=== PATIENT | male | born 1990 | race Caucasian/White ===

== ENCOUNTER 2017-05-27 02:24 | Emergency (ER) | payer BC ==
[2017-05-27 03:00] LABS: #Eosinphils 0.1 thou/uL (0.0-0.7); #Lymphocytes 2.7 thou/uL (1.20-3.40); #Monocytes 0.5 thou/uL (0.11-0.59); #Neutrophils 6.6 thou/uL (1.40-6.50); %Basophils 0.4 % (0.0-1.0); %Eosinophils 0.7 % (0.0-10.0); %Monocytes 4.9 % (0.0-10.0); %Neutrophils 67.1 % (42.0-75.0); Hemoglobin 14.1 g/dL (14.0-18.0); Mean Corpuscular HGB CONC 33.8 g/dL (32.0-36.0); Mean Corpuscular Hemoglobin 30.9 pg (27.0-31.0); Mean Corpuscular Volume 91.4 fl (80.0-94.0); Mean Platelet Volume 6.5 fL (7.4-10.4); Platelet Count 356 thou/uL (130-400); RBC Distribution Width 11.5 % (11.5-14.5); Red Blood Cell (RBC) Count 4.56 mill/uL (4.70-6.10); White Blood Cell (WBC) Count 9.8 thou/uL (4.8-10.8)
[2017-05-27 03:12] LABS: Bilirubin Negative (Negative); Blood, Urine Negative (Negative); Clarity CLEAR (Clear); Glucose, Urine (Dipstick) Negative (Negative); Leukocyte Negative (Negative); Nitrite Negative (Negative); Protein, Urine (Dipstick) Negative (Neg-Trace); Specific Gravity, Urine 1.003 (1.002-1.036); Urobilinogen 0.2 mg/dL (0.2-1.0); pH, Urine 7.5 (5.0-9.0)
[2017-05-27 03:21] LABS: ALT (SGPT) 13 U/L (8-55); AST (SGOT) 14 U/L (5-34); Alkaline Phosphatase 70 U/L (40-150); Anion Gap 16 mmol/L (10-20); BUN (Urea Nitrogen) 4 mg/dL (8.9-20.6); Bilirubin, Total 0.5 mg/dL (0.2-1.2); Calc. Creatinine Clearance 0 mL/min (70-130); Calcium 9.4 mg/dL (7.8-10.44); Carbon Dioxide 23 mmol/L (22-29); Chloride 94 mmol/L (98-107); Estimated GFR-MDRD Greater than 90; Globulin 3.3 g/dL (2.4-3.5); Glucose 125 mg/dL (70-105); Potassium 3.8 mmol/L (3.5-5.1); Protein, Total 7.3 g/dL (6.0-8.3); Sodium 129 mmol/L (136-145)
--- NOTE | 2017-05-27 09:42 | CT ---
PRELIMINARY REPORT/[facility]/EMERGENCY AFTER HOURS PROCEDURE: EXAM: CT Abdomen and Pelvis Without Intravenous Contrast CLINICAL HISTORY: 27 years old, male; Pain; Abdominal pain; Flank; Left; Patient HX: Pt has HX of cysturia and has freq uent renal stones. Last night pt developed dull l flank pain that has become sharp and constant tonig ht. Pt also C/O infrequent urination. No hematuria or fever. TECHNIQUE: Axial computed tomography images of the abdomen and pelvis without intravenous contrast. Coronal reformatted images were created and reviewed. COMPARISON: No relevant prior studies available. FINDINGS: Lower thorax: No acute findings. ABDOMEN: Liver: No mass. Gallbladder and bile ducts: No calcified stones. No ductal dilation. Pancreas: No ductal dilation. No mass. Spleen: No mass. Adrenals: No mass. Kidneys and ureters: Mild left hydronephrosis. No calcified stones. No hydroureter. Unremarkable right kidney and ureter. Stomach and bowel: Underdistended descending and sigmoid colon versus wall thickening/colitis. Otherwise fecal loading. Diverticulosis. No evidence of bowel obstruction. Appendix: No findings to suggest acute appendicitis. PELVIS: Bladder: No stones. Reproductive: No acute findings. ABDOMEN and PELVIS: Intraperitoneal space: No acute findings. No free air. No significant fluid collection. Bones/joints: No acute fracture. Soft tissues: No acute findings. Vasculature: No acute findings. No abdominal aortic aneurysm. Lymph nodes: Small and prominent mesenteric lymph nodes. IMPRESSION: Mild left hydronephrosis. No calcified stones. Underdistended descending and sigmoid colon versus wall thickening/colitis. Thank you for allowing us to participate in the care of your patient. Dictated and Authenticated by: Romel Perez MD 05/27/2017 3:36 AM Central Time ([place] & [place]) FINAL REPORT ABDOMEN CT WITHOUT CONTRAST PELVIC CT WITHOUT CONTRAST: HISTORY: Cysturia. Frequent renal calculi. COMPARISON: None. TECHNIQUE: Abdomen and pelvic CT are performed without contrast, utilizing renal stone protocol. Coronal reform atted images are submitted for interpretation. FINDINGS/IMPRESSION: This report is in agreement with the preliminary report by [facility]. There is mild left-sided hydronephro sis without associated obstructing calculus. Nonemergent IVP can be performed. Normal caliber appen francine. POS: [facility]
== END 2017-05-27 04:07 | disposition home or self-care (01) ==
LOC: ERS 02:24
DX: R10.9 Unspecified abdominal pain (principal)
CPT/HCPCS: 74176; 80053; 81003; 85025

== ENCOUNTER 2018-07-09 07:58 | Outpatient (CLI) | payer BC ==
--- NOTE | 2018-07-09 08:39 | ULT ---
US Renal Bilateral STANDARD: 07/09/2018 12:00 AM CLINICAL HISTORY: Calculus of the kidney. STUDY: Renal ultrasound COMPARISON: None. FINDINGS: Right kidney: Echogenicity: Normal. Masses/cysts: None. Hydronephrosis: None. Calcifications: None. Length: 9.0 cm Left kidney: Echogenicity: Normal. Masses/cysts: None. Hydronephrosis: Mild Calcifications: None. Length: 9.1 cm Limited visualization of the urinary bladder is unremarkable. IMPRESSION: Mild left hydronephrosis. No shadowing calculi identified
== END 2018-07-09 07:59 | disposition home or self-care (01) ==
LOC: BICULT 07:58
PROVIDERS: ATTEND Internal Medicine Nephrology
DX: N13.2 Hydronephrosis with renal and ureteral calculous obstruction (principal)
CPT/HCPCS: 76770